=== PATIENT | male | born 1960 | race Caucasian/White ===

== ENCOUNTER 2017-05-11 16:06 | Emergency (ER) | payer OTHER ==
[~2017-05-11] VITALS: Ht 177.8 cm; Wt 120.0 kg
[~2017-05-11 16:06] MED LIST: CALA180T PO; METF1000 PO; PRIN10TA PO
[2017-05-11 16:09] VITALS: BP 194/89; PULSE 87; RESP 16; TEMP 98; O2SAT 97
--- NOTE | 2017-05-11 17:00 | PD ---
HPI Chief Complaint: Pain: Acute or Chronic Time Seen by Provider: 16:59 Travel History International Travel<30 days: No Contact w/Intl Traveler<30days: No Traveled to known affect area: No History of Present Illness HPI 56-year-old male with history of hypertension presents to the emergency department for evaluation of left-sided rib pain. Patient [place] He landed on his left anterior lateral chest. He experienced pain at that time but over the last day, he has experienced worsening pain, worse with shortness of breath. Worse with palpation. It is an 8 out of 10, constant, moderate in severity. Denies any hemoptysis. Denies hitting his head or losing consciousness. Has no other symptoms to report at this time. PFSH Past Medical History Autoimmune Disease: No Blood Disorders: No Cancer: No Cardiovascular Problems: Yes Diminished Hearing: No Genitourinary: No Hypertension: Yes Immune Disorder: No Musculoskeletal: No Neurologic: No Psychiatric: No Reproductive: No Respiratory: No Past Surgical History Joint Replacement: Yes (LEFT KNEE) Neurologic Surgery: Yes (BACK) Social History Alcohol Use: No Tobacco Use: No Substance Use: No Allergies-Medications (Allergen,Severity, Reaction): Coded Allergies: penicillin G (Unverified Allergy, Severe, hives, rash, 10/30/16) Reported Meds & Prescriptions Reported Meds & Active Scripts Active Ibuprofen 800 Mg Tab 800 Mg PO Q8H PRN Indian (Hydrocodone-Acetaminophen) 5 Mg-325 Mg Tab 1 Tab PO Q6H PRN Colace (Docusate Sodium) 100 Mg Capsule 100 Mg PO BID Reported Lisinopril 40 Mg Tab 40 Mg PO BID Metoprolol Tartrate 25 Mg Tab 25 Mg PO BID Amlodipine (Amlodipine Besylate) 5 Mg Tab 5 Mg PO DAILY Metformin (Metformin HCl) 500 Mg Tab 500 Mg PO DAILY With a meal Review of Systems Except as stated in HPI: all other systems reviewed are Neg Physical Exam Narrative GENERAL: Well-nourished male patient, sitting in bed in no acute distress. SKIN: Focused skin assessment warm/dry. HEAD: Atraumatic. Normocephalic. EYES: Pupils equal and round. No scleral icterus. No injection or drainage. ENT: No nasal bleeding or discharge. Mucous membranes pink and moist. NECK: Trachea midline. No JVD. CARDIOVASCULAR: Regular rate and rhythm. No murmur appreciated. RESPIRATORY: No accessory muscle use. Tenderness elicited palpation of the left anterior lateral rib cage. No crepitus. Even respirations. Breath sounds equal bilaterally. GASTROINTESTINAL: Abdomen soft, non-tender, nondistended. No guarding. No rebound tenderness. Hepatic and splenic margins not palpable. MUSCULOSKELETAL: No obvious deformities. No clubbing. No cyanosis. No edema. NEUROLOGICAL: Awake and alert. No obvious cranial nerve deficits. Motor grossly within normal limits. Normal speech. PSYCHIATRIC: Appropriate mood and affect; insight and judgment normal. Data Data Last Documented VS Vital Signs Date Time Temp Pulse Resp B/P (MAP) Pulse Ox O2 Delivery O2 Flow Rate FiO2 05/11/17 19:04 05/11/17 16:58 18 05/11/17 16:09 98.0 87 97 Room Air Orders Orders Chest, Pa & Lat (05/11/17 ) Ketorolac Inj (Toradol Inj) (05/11/17 17:30) Oxycodone-Acetamin 10-325 Mg (Percocet 1 (05/11/17 17:30) Resp Incentive Spirometry (05/11/17 ) Ed Discharge Order (05/11/17 18:54) MDM Medical Decision Making Medical Screen Exam Complete: Yes Emergency Medical Condition: Yes Medical Record Reviewed: Yes Differential Diagnosis Rib contusion versus fracture versus pneumothorax versus visceral injury Narrative Course 56-year-old male presents to emergency department for evaluation left anterior lateral rib pain after a slip and fall yesterday. Patient does have tenderness to palpation. His breath sounds are equal bilaterally. He has no crepitus. X- ray imaging confirms no acute intrathoracic disease. No obvious bony abnormality. Patient is counseled on care, provided incentive spirometer. He is advised to follow-up with primary care provider. He agrees to return immediately with any acute worsening of symptoms. Diagnosis Primary Impression: Contusion of rib on left side Qualified Codes: S20.212A - Contusion of left front wall of thorax, initial encounter Referrals: Primary Care Physician Patient Instructions: General Instructions, Rib Contusion (ED) Departure Forms: Tests/Procedures, Work Release Enter return to work date: May 13, 2017 Additional Instructions: It is important that you take deep breaths to reduce your risk of pneumonia Incentive spirometer 10 times on the hour every hour while you are awake to help reduce your risk pneumonia [id number] stool softener is recommended if you're taking narcotic pain control Follow-up with a primary care provider Return immediately with any acute worsening symptoms Med/Other Pt SpecificInfo: Prescription(s) given Scripts Ibuprofen (Ibuprofen) 800 Mg Tab 800 MG PO Q8H Y for Pain/Inflammation, #30 TAB 0 Refills Prov: Verónica Monsalve 05/11/17 Hydrocodone-Acetaminophen (Indian) 5 Mg-325 Mg Tab 1 TAB PO Q6H Y for PAIN GREATER THAN 6, #15 TAB 0 Refills Prov: Verónica Monsalve 05/11/17 Docusate Sodium (Colace) 100 Mg Capsule 100 MG PO BID for Prevent Constipation, #10 CAP 0 Refills Prov: Verónica Monsalve 05/11/17 Disposition: 01 DISCHARGE HOME Condition: Stable Verónica Monsalve May 11, 2017 17:00
[2017-05-11] MEDS ORDERED: AMLO5TAB2 PO (17:02)
[2017-05-11] MEDS ORDERED: LISI40TA PO (17:02)
[2017-05-11] MEDS ORDERED: METF500T PO (17:02)
[2017-05-11] MEDS ORDERED: METO25TA3 PO (17:02)
[2017-05-11] MEDS ORDERED: KETOROLAC TROMETHAMINE 30 MG/ML (IVP) VIAL IV PUSH ONE (17:30)
[2017-05-11] MEDS ORDERED: oxyCODONE/ACETAMINOPHEN 10 MG/325 MG TAB PO ONE (17:30)
--- NOTE | 2017-05-11 18:48 | RADRPT ---
EXAM DATE/TIME: 05/11/2017 18:27 [facility] COMPARISON: No previous studies available for comparison. INDICATIONS : Left anterior rib pain status post fall. MEDICAL HISTORY : None. SURGICAL HISTORY : None. ENCOUNTER: Initial ACUITY: 2 days PAIN SCORE: 10/10 LOCATION: chest FINDINGS: PA and lateral views of the chest demonstrate the lungs to be symmetrically aerated without evidence of mass, infiltrate or effusion. The cardiomediastinal contours are unremarkable. Osseous structure s are intact. CONCLUSION: No acute intrathoracic disease. Ari Munoz MD on May 11, 2017 at 18:46 Board Certified Radiologist. This report was verified electronically.
[2017-05-11] MEDS ORDERED: NORC5TAB PO (18:59)
[2017-05-11] MEDS ORDERED: COLA100C5 PO (18:59)
[2017-05-11] MEDS ORDERED: IBUP1TAB7 PO (18:59)
== END 2017-05-11 19:23 | disposition home or self-care (01) ==
LOC: NEPE 16:06
DX: S20.212A Contusion of left front wall of thorax, initial encounter (principal); I10 Essential (primary) hypertension; R06.02 Shortness of breath; W01.0XXA Fall on same level from slipping, tripping and stumbling without subsequent striking against object, initial encounter; Y92.62 Dock or shipyard as the place of occurrence of the external cause
CPT/HCPCS: 71046; 94150; 96374; 99284; J1885